=== PATIENT | male | born 1945 | race Caucasian/White ===

== ENCOUNTER 2016-12-10 14:32 | Emergency (ER) | payer MEDICARE ==
[2016-12-10] MEDS ORDERED: PHYTONADIONE 10 MG/1 ML AMP ONE (15:18)
[2016-12-10 15:45] LABS: ABSOLUTE NEUTROPHIL COUNT 6.5 K/mm3 (1.8-7.7); BASO % 0.2 % (0.2-1.0); EOS # 0.2 (0.0-0.5); EOS % 2.5 % (0.9-2.9); HEMATOCRIT 47.3 % (32.0-52.0); HEMOGLOBIN 15.6 gm/l (14.0-18.0); IMM NEUT% 0.3 % (0-1); LYMPH # 2.1 (1.0-4.8); LYMPH % 21.2 % (15-45); MEAN CELL VOLUME 90.6 fl (80.0-94.0); MEAN CORPUSCULAR HEMOGLOBIN 29.9 pg (27.0-31.0); MONO % 9.7 % (4-12); NEUT % 66.1 % (43-75); PLATELET COUNT 169 K/mm3 (130-400); RED CELL DISTRIBUTION WIDTH 17.9 % (11.5-14.5)
[2016-12-10 16:05] LABS: ALB/GLOB RATIO 1.1 (>1.0); ALBUMIN 3.6 gm/dL (3.5-5.7); CALCIUM 9.7 mg/dL (8.6-10.3); MAGNESIUM 2.3 mg/dL (1.9-2.7)
--- NOTE | 2016-12-10 16:09 | RAD ---
CHEST 2 VIEWS HISTORY: Crackles on pulmonary exam Frontal and lateral chest radiographs dated 12/10/2016. COMPARISON: 01/21/2009 FINDINGS: FOCAL AIRSPACE OPACITY: No gross airspace consolidation. PLEURAL EFFUSION: None. CARDIOMEDIASTINAL SILHOUETTE: Moderately severe cardiomegaly, mildly increased over the interval. Dual-lead pacer noted. PNEUMOTHORAX: None identified. OSSEOUS STRUCTURES: Bridging anterior osteophytes of the thoracic spine. IMPRESSION: Moderate cardiomegaly without vascular congestion or pulmonary edema. Dual-lead pacer identified. Thoracic spondylosis.
[2016-12-10 16:34] LABS: INR 9.33
== END 2016-12-10 18:07 | disposition home or self-care (01) ==
LOC: ED 14:32
DX: D68.9 Coagulation defect, unspecified (principal); R63.0 Anorexia; K12.0 Recurrent oral aphthae; I13.0 Hypertensive heart and chronic kidney disease with heart failure and stage 1 through stage 4 chronic kidney disease, or unspecified chronic kidney disease; I50.9 Heart failure, unspecified; Z79.01 Long term (current) use of anticoagulants; Z95.810 Presence of automatic (implantable) cardiac defibrillator
CPT/HCPCS: 83880; 82150; 85025; 80053; 83735; 85610 ×2; 84484; 36415 ×5; 71020; 99284; 99283; J3430